=== PATIENT | male | born 1965 | race Hispanic/Latino ===

== ENCOUNTER 2016-10-11 08:26 | Emergency (ER) | payer OTHER ==
[~2016-10-11] VITALS: Ht 152.4 cm; Wt 60.0 kg
[2016-10-11] MEDS ORDERED: MOTRIN800 MG PO (08:33)
[2016-10-11] MEDS ORDERED: FLEXERIL PO (08:33)
[2016-10-11] MEDS ORDERED: TRAMADOL HYDROC50 MG PO (08:33)
[2016-10-11 10:07] VITALS: BP 139/77
== END 2016-10-11 10:08 | disposition home or self-care (01) | DRG 552 ==
LOC: ED 08:26
DX: S23.3XXA Sprain of ligaments of thoracic spine, initial encounter (principal); V44.6XXA Car passenger injured in collision with heavy transport vehicle or bus in traffic accident, initial encounter

== ENCOUNTER 2019-02-22 08:11 | Emergency (ER) | payer SELFPAY ==
[~2019-02-22] VITALS: Ht 152.4 cm; Wt 80.0 kg
[~2019-02-22 08:11] MED LIST: FLEXERIL PO; MOTRIN800 MG PO; TRAMADOL HYDROC50 MG PO
[2019-02-22 08:45] LABS: HEMATOCRIT 45.7 % (39.0-50.0); HEMOGLOBIN 16.2 g/dl (14.0-18.0); IMMATURE GRANULOCYTES 0.5 % (0.0-5.0); MEAN CELL VOLUME 88.1 fL CALC (80.0-100.0); MEAN CORPUSCULAR HGB 31.2 pG CALC (26.0-32.0); MEAN CORPUSCULAR HGB CONC 35.4 g/L CALC (32.0-36.0); NEUT# 8.42 thou/uL (1.82-7.42); RED BLOOD COUNT 5.19 mill/uL (4.70-6.10); RED CELL DISTRI WIDTH 12.3 % (11.5-15.5)
[2019-02-22 09:00] LABS: ANION GAP 19 (6-22 (CALC)); BUN 12 mg/dL (9-20); BUN/CREATININE RATIO 15 (12-20 (CALC)); CARBON DIOXIDE 22 mmol/l (22-30); CHLORIDE 96 mmol/l (95-108); CREATININE 0.8 mg/dL (0.7-1.3); GFR > 60 ML/MIN (>=60 (CALC)); GFR FOR AFR.AMER. > 60 ML/MIN (>=60 (CALC)); POTASSIUM 3.9 mmol/l (3.5-5.1); SODIUM 133 mmol/l (137-146)
[2019-02-22] MEDS ORDERED: COLCHICINE0.6 M2 PO (09:26)
[2019-02-22] MEDS ORDERED: MOTRIN400 MG PO (09:26)
[2019-02-22] MEDS ORDERED: CEPHALEXIN500 M1 PO (09:27)
[2019-02-22 09:33] VITALS: BP 129/77
== END 2019-02-22 09:50 | disposition home or self-care (01) | DRG 554 ==
LOC: ED 08:11
PROVIDERS: Family Medicine
DX: M10.09 Idiopathic gout, multiple sites (principal)

== ENCOUNTER 2021-08-18 08:56 | Emergency (ER) | payer SELFPAY ==
[~2021-08-18] VITALS: Ht 152.4 cm; Wt 90.0 kg
[~2021-08-18 08:56] MED LIST changes: +CEPHALEXIN500 M1 PO; +COLCHICINE0.6 M2 PO; +MOTRIN400 MG PO
[2021-08-18] MEDS ORDERED: MELOXICAM7.5 MG PO (09:19)
[2021-08-18] MEDS ORDERED: MEDDOSEPAK PO (09:22)
[2021-08-18] MEDS ORDERED: ULTRAM50 MG PO (09:22)
[2021-08-18 09:24] VITALS: BP 146/97
== END 2021-08-18 09:42 | disposition home or self-care (01) | DRG 554 ==
LOC: ED 08:56
DX: M15.9 Polyosteoarthritis, unspecified (principal)

== ENCOUNTER 2021-10-04 12:46 | Inpatient (IN) | payer SELFPAY ==
[2021-10-04] VITALS (12 sets, daily range): BP systolic 109–143; BP diastolic 71–89
[~2021-10-04] VITALS: Ht 162.6 cm; Wt 84.0 kg
[~2021-10-04 12:46] MED LIST changes: +MEDDOSEPAK PO; +MELOXICAM7.5 MG PO; +ULTRAM50 MG PO
[2021-10-04 14:24] LABS: IMMATURE GRANULOCYTES 0.8 % (0.0-5.0); MEAN CELL VOLUME 85.8 fL CALC (80.0-100.0); MEAN CORPUSCULAR HGB 27.7 pG CALC (26.0-32.0); MEAN CORPUSCULAR HGB CONC 32.2 g/dL CAL (32.0-36.0); NEUT# 17.57 thou/uL (1.82-7.42); RED BLOOD COUNT 4.3 mill/uL (4.70-6.10); RED CELL DISTRI WIDTH 16.6 % (11.5-15.5)
[2021-10-04 14:25] LABS: ALKALINE PHOSPHATASE 100 u/l (38-126); BILIRUBIN, TOTAL 0.5 mg/dL (0.0-1.4); BUN 25 mg/dL (9-20); BUN/CREATININE RATIO 32 (12-20 (CALC)); CARBON DIOXIDE 21 mmol/l (22-30); CREATININE 0.8 mg/dL (0.7-1.3); GFR FOR AFR.AMER. > 60 ML/MIN (>=60 (CALC)); GFR OTHER RACES > 60 ML/MIN (>=60 (CALC)); LIPASE 94 u/l (23-300); POTASSIUM 3.5 mmol/l (3.5-5.1); SGOT/AST 29 u/l (17-59); SODIUM 139 mmol/l (137-146); TOTAL PROTEIN 6.8 g/dL (6.3-8.2)
[2021-10-04 14:36] LABS: HEMATOCRIT 36.9 % (39.0-50.0); HEMOGLOBIN 11.9 g/dl (14.0-18.0)
[2021-10-04 14:39] LABS: ANION GAP 14 (6-22 (CALC)); CHLORIDE 108 mmol/l (95-108)
[2021-10-04 18:29] LABS: URINE BILIRUBIN - DIPSTICK NEGATIVE (NEGATIVE); URINE BLOOD DIPSTICK NEGATIVE (NEGATIVE); URINE COLOR YELLOW; URINE GLUCOSE - DIPSTICK NEGATIVE (NEGATIVE); URINE KETONE NEGATIVE (NEGATIVE); URINE LEUK ESTERASE NEGATIVE (NEGATIVE); URINE PH 6.5 (4.5-8.0); URINE PROTEIN - DIPSTICK NEGATIVE (NEG-TRACE)
[2021-10-04 18:33] LABS: URINE NITRITE - DIPSTICK NEGATIVE (Negative)
[2021-10-05] VITALS (13 sets, daily range): BP systolic 74–206; BP diastolic 50–111
[2021-10-05 05:55] LABS: HEMATOCRIT 32.3 % (39.0-50.0); HEMOGLOBIN 10.5 g/dl (14.0-18.0); IMMATURE GRANULOCYTES 0.3 % (0.0-5.0); MEAN CELL VOLUME 87.1 fL CALC (80.0-100.0); MEAN CORPUSCULAR HGB 28.3 pG CALC (26.0-32.0); MEAN CORPUSCULAR HGB CONC 32.5 g/dL CAL (32.0-36.0); NEUT# 16.58 thou/uL (1.82-7.42); RED BLOOD COUNT 3.71 mill/uL (4.70-6.10); RED CELL DISTRI WIDTH 17.5 % (11.5-15.5)
[2021-10-05 06:30] LABS: ALKALINE PHOSPHATASE 61 u/l (38-126); BUN 17 mg/dL (9-20); BUN/CREATININE RATIO 27 (12-20 (CALC)); CHLORIDE 108 mmol/l (95-108); CREATININE 0.6 mg/dL (0.7-1.3); GFR FOR AFR.AMER. > 60 ML/MIN (>=60 (CALC)); GFR OTHER RACES > 60 ML/MIN (>=60 (CALC)); MAGNESIUM 2.2 mg/dL (1.6-2.3); SGOT/AST 16 u/l (17-59); SODIUM 138 mmol/l (137-146)
[2021-10-05 06:48] LABS: ALBUMIN 2.7 g/dL (3.2-5.0); ANION GAP 7 (6-22 (CALC)); BILIRUBIN, TOTAL 0.8 mg/dL (0.0-1.4); CARBON DIOXIDE 27 mmol/l (22-30)
[2021-10-06] VITALS (66 sets, daily range): BP systolic 77–121; BP diastolic 50–84
[2021-10-06 05:24] LABS: HEMATOCRIT 33.7 % (39.0-50.0); HEMOGLOBIN 10.6 g/dl (14.0-18.0); IMMATURE GRANULOCYTES 0.6 % (0.0-5.0); MEAN CELL VOLUME 88.2 fL CALC (80.0-100.0); MEAN CORPUSCULAR HGB 27.7 pG CALC (26.0-32.0); MEAN CORPUSCULAR HGB CONC 31.5 g/dL CAL (32.0-36.0); NEUT# 22.91 thou/uL (1.82-7.42); RED BLOOD COUNT 3.82 mill/uL (4.70-6.10)
[2021-10-06 06:18] LABS: BUN 25 mg/dL (9-20); BUN/CREATININE RATIO 23 (12-20 (CALC)); CHLORIDE 111 mmol/l (95-108); CREATININE 1.1 mg/dL (0.7-1.3); GFR FOR AFR.AMER. > 60 ML/MIN (>=60 (CALC)); GFR OTHER RACES > 60 ML/MIN (>=60 (CALC)); MAGNESIUM 1.9 mg/dL (1.6-2.3); SODIUM 137 mmol/l (137-146)
[2021-10-06 06:22] LABS: ANION GAP 12 (6-22 (CALC)); CARBON DIOXIDE 18 mmol/l (22-30)
[2021-10-07] VITALS (37 sets, daily range): BP systolic 88–150; BP diastolic 57–99
[2021-10-07 06:20] LABS: IMMATURE GRANULOCYTES 0.5 % (0.0-5.0); MEAN CORPUSCULAR HGB 28.1 pG CALC (26.0-32.0); MEAN CORPUSCULAR HGB CONC 29.8 g/dL CAL (32.0-36.0); NEUT# 13.16 thou/uL (1.82-7.42); RED BLOOD COUNT 2.92 mill/uL (4.70-6.10); RED CELL DISTRI WIDTH 18.1 % (11.5-15.5)
[2021-10-07 06:59] LABS: HEMATOCRIT 27.5 % (39.0-50.0); HEMOGLOBIN 8.2 g/dl (14.0-18.0); MEAN CELL VOLUME 94.2 fL CALC (80.0-100.0)
[2021-10-07 07:15] LABS: ANION GAP 8 (6-22 (CALC)); BUN 17 mg/dL (9-20); BUN/CREATININE RATIO 21 (12-20 (CALC)); CARBON DIOXIDE 19 mmol/l (22-30); CHLORIDE 113 mmol/l (95-108); CREATININE 0.8 mg/dL (0.7-1.3); GFR FOR AFR.AMER. > 60 ML/MIN (>=60 (CALC)); GFR OTHER RACES > 60 ML/MIN (>=60 (CALC)); POTASSIUM 3.5 mmol/l (3.5-5.1); SODIUM 136 mmol/l (137-146)
[2021-10-07 07:18] LABS: MAGNESIUM 2.4 mg/dL (1.6-2.3)
[2021-10-08] VITALS (17 sets, daily range): BP systolic 120–166; BP diastolic 75–107
[2021-10-08 07:03] LABS: HEMATOCRIT 28.6 % (39.0-50.0); HEMOGLOBIN 9.5 g/dl (14.0-18.0); MEAN CORPUSCULAR HGB 27.7 pG CALC (26.0-32.0); MEAN CORPUSCULAR HGB CONC 33.2 g/dL CAL (32.0-36.0); RED BLOOD COUNT 3.43 mill/uL (4.70-6.10); RED CELL DISTRI WIDTH 17.3 % (11.5-15.5)
[2021-10-08 07:06] LABS: MEAN CELL VOLUME 83.4 fL CALC (80.0-100.0)
[2021-10-08 07:19] LABS: ALKALINE PHOSPHATASE 73 u/l (38-126); ANION GAP 13 (6-22 (CALC)); BUN 10 mg/dL (9-20); BUN/CREATININE RATIO 14 (12-20 (CALC)); CARBON DIOXIDE 20 mmol/l (22-30); CHLORIDE 109 mmol/l (95-108); CREATININE 0.7 mg/dL (0.7-1.3); GFR FOR AFR.AMER. > 60 ML/MIN (>=60 (CALC)); GFR OTHER RACES > 60 ML/MIN (>=60 (CALC)); MAGNESIUM 2.1 mg/dL (1.6-2.3); POTASSIUM 3.1 mmol/l (3.5-5.1); SGOT/AST 15 u/l (17-59); SODIUM 138 mmol/l (137-146); TOTAL PROTEIN 4.5 g/dL (6.3-8.2)
[2021-10-08 07:54] LABS: ALBUMIN 2.1 g/dL (3.2-5.0); BILIRUBIN, TOTAL 1.2 mg/dL (0.0-1.4)
[2021-10-09 00:11] VITALS: BP 158/94
[2021-10-09 04:00] VITALS: BP 158/94
[2021-10-09 06:26] VITALS: BP 162/95
[2021-10-09 06:59] LABS: HEMATOCRIT 28.4 % (39.0-50.0); HEMOGLOBIN 9.3 g/dl (14.0-18.0); MEAN CELL VOLUME 86.1 fL CALC (80.0-100.0); MEAN CORPUSCULAR HGB 28.2 pG CALC (26.0-32.0); MEAN CORPUSCULAR HGB CONC 32.7 g/dL CAL (32.0-36.0); RED BLOOD COUNT 3.3 mill/uL (4.70-6.10); RED CELL DISTRI WIDTH 17.4 % (11.5-15.5)
[2021-10-09 07:20] LABS: ALBUMIN 2.2 g/dL (3.2-5.0); ALKALINE PHOSPHATASE 73 u/l (38-126); ANION GAP 15 (6-22 (CALC)); BILIRUBIN, TOTAL 1.1 mg/dL (0.0-1.4); BUN 9 mg/dL (9-20); BUN/CREATININE RATIO 13 (12-20 (CALC)); CARBON DIOXIDE 17 mmol/l (22-30); CHLORIDE 110 mmol/l (95-108); CREATININE 0.7 mg/dL (0.7-1.3); GFR FOR AFR.AMER. > 60 ML/MIN (>=60 (CALC)); GFR OTHER RACES > 60 ML/MIN (>=60 (CALC)); MAGNESIUM 2.2 mg/dL (1.6-2.3); POTASSIUM 3.3 mmol/l (3.5-5.1); SGOT/AST 15 u/l (17-59); SODIUM 140 mmol/l (137-146); TOTAL PROTEIN 4.7 g/dL (6.3-8.2)
[2021-10-09 11:25] VITALS: BP 153/91
[2021-10-09 20:00] VITALS: BP 160/95
[2021-10-10 00:32] VITALS: BP 156/90
[2021-10-10 04:06] VITALS: BP 140/85
[2021-10-10 07:09] VITALS: BP 156/93
[2021-10-10 09:21] LABS: HEMATOCRIT 30.9 % (39.0-50.0); HEMOGLOBIN 9.9 g/dl (14.0-18.0); IMMATURE GRANULOCYTES 0.8 % (0.0-5.0); MEAN CELL VOLUME 84.4 fL CALC (80.0-100.0); NEUT# 9.41 thou/uL (1.82-7.42); RED BLOOD COUNT 3.66 mill/uL (4.70-6.10); RED CELL DISTRI WIDTH 17.2 % (11.5-15.5)
[2021-10-10 09:38] LABS: ALKALINE PHOSPHATASE 95 u/l (38-126); BILIRUBIN, TOTAL 0.9 mg/dL (0.0-1.4); BUN 8 mg/dL (9-20); BUN/CREATININE RATIO 12 (12-20 (CALC)); CHLORIDE 107 mmol/l (95-108); CREATININE 0.6 mg/dL (0.7-1.3); GFR FOR AFR.AMER. > 60 ML/MIN (>=60 (CALC)); GFR OTHER RACES > 60 ML/MIN (>=60 (CALC)); MAGNESIUM 2.2 mg/dL (1.6-2.3); POTASSIUM 3.3 mmol/l (3.5-5.1); SGOT/AST 19 u/l (17-59); SODIUM 139 mmol/l (137-146)
[2021-10-10 09:39] LABS: ALBUMIN 2.8 g/dL (3.2-5.0); ANION GAP 12 (6-22 (CALC)); CARBON DIOXIDE 23 mmol/l (22-30); TOTAL PROTEIN 6.1 g/dL (6.3-8.2)
[2021-10-10 10:26] VITALS: BP 155/89
[2021-10-10 14:27] VITALS: BP 137/91
[2021-10-10 19:04] VITALS: BP 155/95
[2021-10-11] VITALS (9 sets, daily range): BP systolic 122–138; BP diastolic 79–90
[2021-10-11 05:13] LABS: HEMATOCRIT 26.3 % (39.0-50.0); HEMOGLOBIN 8.8 g/dl (14.0-18.0); IMMATURE GRANULOCYTES 1.2 % (0.0-5.0); MEAN CELL VOLUME 82.4 fL CALC (80.0-100.0); MEAN CORPUSCULAR HGB 27.6 pG CALC (26.0-32.0); MEAN CORPUSCULAR HGB CONC 33.5 g/dL CAL (32.0-36.0); NEUT# 8.69 thou/uL (1.82-7.42); RED BLOOD COUNT 3.19 mill/uL (4.70-6.10); RED CELL DISTRI WIDTH 17.2 % (11.5-15.5)
[2021-10-11 05:38] LABS: ALKALINE PHOSPHATASE 93 u/l (38-126); ANION GAP 10 (6-22 (CALC)); BUN 5 mg/dL (9-20); BUN/CREATININE RATIO 9 (12-20 (CALC)); CARBON DIOXIDE 24 mmol/l (22-30); CHLORIDE 104 mmol/l (95-108); CREATININE 0.5 mg/dL (0.7-1.3); GFR FOR AFR.AMER. > 60 ML/MIN (>=60 (CALC)); GFR OTHER RACES > 60 ML/MIN (>=60 (CALC)); MAGNESIUM 2.1 mg/dL (1.6-2.3); SGOT/AST 16 u/l (17-59); SODIUM 135 mmol/l (137-146)
[2021-10-11 05:39] LABS: ALBUMIN 2.1 g/dL (3.2-5.0); BILIRUBIN, TOTAL 0.5 mg/dL (0.0-1.4); TOTAL PROTEIN 4.7 g/dL (6.3-8.2)
[2021-10-12] VITALS (12 sets, daily range): BP systolic 132–158; BP diastolic 68–88
[2021-10-12 05:17] LABS: HEMATOCRIT 26.5 % (39.0-50.0); HEMOGLOBIN 8.7 g/dl (14.0-18.0); MEAN CELL VOLUME 84.1 fL CALC (80.0-100.0); MEAN CORPUSCULAR HGB 27.6 pG CALC (26.0-32.0); MEAN CORPUSCULAR HGB CONC 32.8 g/dL CAL (32.0-36.0); RED BLOOD COUNT 3.15 mill/uL (4.70-6.10); RED CELL DISTRI WIDTH 17.5 % (11.5-15.5)
[2021-10-12 05:31] LABS: ALBUMIN 2.2 g/dL (3.2-5.0); ALKALINE PHOSPHATASE 147 u/l (38-126); ANION GAP 10 (6-22 (CALC)); BILIRUBIN, TOTAL 0.4 mg/dL (0.0-1.4); BUN 4 mg/dL (9-20); BUN/CREATININE RATIO 7 (12-20 (CALC)); CARBON DIOXIDE 26 mmol/l (22-30); CHLORIDE 103 mmol/l (95-108); CREATININE 0.6 mg/dL (0.7-1.3); GFR FOR AFR.AMER. > 60 ML/MIN (>=60 (CALC)); GFR OTHER RACES > 60 ML/MIN (>=60 (CALC)); POTASSIUM 3.3 mmol/l (3.5-5.1); SGOT/AST 16 u/l (17-59); SODIUM 136 mmol/l (137-146); TOTAL PROTEIN 4.7 g/dL (6.3-8.2)
[2021-10-13] VITALS (7 sets, daily range): BP systolic 125–158; BP diastolic 74–91
[2021-10-14] VITALS (7 sets, daily range): BP systolic 109–156; BP diastolic 66–88
[2021-10-14 05:27] LABS: HEMATOCRIT 25.4 % (39.0-50.0); HEMOGLOBIN 8.4 g/dl (14.0-18.0); IMMATURE GRANULOCYTES 0.7 % (0.0-5.0); MEAN CELL VOLUME 81.9 fL CALC (80.0-100.0); MEAN CORPUSCULAR HGB 27.1 pG CALC (26.0-32.0); MEAN CORPUSCULAR HGB CONC 33.1 g/dL CAL (32.0-36.0); NEUT# 5.92 thou/uL (1.82-7.42); RED BLOOD COUNT 3.1 mill/uL (4.70-6.10); RED CELL DISTRI WIDTH 17.1 % (11.5-15.5)
[2021-10-14 05:46] LABS: ALBUMIN 2.3 g/dL (3.2-5.0); ALKALINE PHOSPHATASE 111 u/l (38-126); ANION GAP 10 (6-22 (CALC)); BILIRUBIN, TOTAL 0.4 mg/dL (0.0-1.4); BUN < 2 mg/dL (9-20); CARBON DIOXIDE 29 mmol/l (22-30); CHLORIDE 97 mmol/l (95-108); CREATININE 0.6 mg/dL (0.7-1.3); GFR FOR AFR.AMER. > 60 ML/MIN (>=60 (CALC)); GFR OTHER RACES > 60 ML/MIN (>=60 (CALC)); POTASSIUM 3.3 mmol/l (3.5-5.1); SGOT/AST 16 u/l (17-59); SODIUM 133 mmol/l (137-146); TOTAL PROTEIN 5.2 g/dL (6.3-8.2)
[2021-10-14 09:25] LABS: INTERNATIONAL NORMALIZED RATIO 1.2 RATIO (0.7-1.3); PROTHROMBIN TIME 11.5 SECONDS (9.0-12.5)
[2021-10-14 20:14] LABS: HEMATOCRIT 26.1 % (39.0-50.0); HEMOGLOBIN 8.5 g/dl (14.0-18.0)
[2021-10-15 00:17] VITALS: BP 118/76
[2021-10-15 03:14] VITALS: BP 140/83
[2021-10-15 04:55] LABS: HEMATOCRIT 26.5 % (39.0-50.0); HEMOGLOBIN 8.9 g/dl (14.0-18.0); MEAN CELL VOLUME 80.1 fL CALC (80.0-100.0); MEAN CORPUSCULAR HGB 26.9 pG CALC (26.0-32.0); MEAN CORPUSCULAR HGB CONC 33.6 g/dL CAL (32.0-36.0); RED BLOOD COUNT 3.31 mill/uL (4.70-6.10); RED CELL DISTRI WIDTH 17.1 % (11.5-15.5)
[2021-10-15 05:19] LABS: ALKALINE PHOSPHATASE 116 u/l (38-126); ANION GAP 8 (6-22 (CALC)); BILIRUBIN, TOTAL 0.3 mg/dL (0.0-1.4); BUN 3 mg/dL (9-20); BUN/CREATININE RATIO 6 (12-20 (CALC)); CARBON DIOXIDE 29 mmol/l (22-30); CHLORIDE 101 mmol/l (95-108); CREATININE 0.6 mg/dL (0.7-1.3); GFR FOR AFR.AMER. > 60 ML/MIN (>=60 (CALC)); GFR OTHER RACES > 60 ML/MIN (>=60 (CALC)); POTASSIUM 3.7 mmol/l (3.5-5.1); SGOT/AST 22 u/l (17-59); SODIUM 134 mmol/l (137-146); TOTAL PROTEIN 5.9 g/dL (6.3-8.2)
[2021-10-15 05:21] LABS: ALBUMIN 2.8 g/dL (3.2-5.0)
[2021-10-15 06:19] VITALS: BP 140/85
[2021-10-15 11:04] VITALS: BP 144/81
[2021-10-15 16:19] VITALS: BP 139/80
[2021-10-15 19:19] VITALS: BP 131/84
[2021-10-16 00:26] VITALS: BP 143/82
[2021-10-16 04:44] VITALS: BP 139/85
[2021-10-16 05:35] LABS: HEMATOCRIT 24.5 % (39.0-50.0); MEAN CELL VOLUME 82.2 fL CALC (80.0-100.0); MEAN CORPUSCULAR HGB 26.8 pG CALC (26.0-32.0); MEAN CORPUSCULAR HGB CONC 32.7 g/dL CAL (32.0-36.0); RED BLOOD COUNT 2.98 mill/uL (4.70-6.10)
[2021-10-16 05:37] LABS: ANION GAP 13 (6-22 (CALC)); BUN 3 mg/dL (9-20); BUN/CREATININE RATIO 5 (12-20 (CALC)); CARBON DIOXIDE 26 mmol/l (22-30); CHLORIDE 99 mmol/l (95-108); CREATININE 0.5 mg/dL (0.7-1.3); GFR FOR AFR.AMER. > 60 ML/MIN (>=60 (CALC)); GFR OTHER RACES > 60 ML/MIN (>=60 (CALC)); POTASSIUM 3.4 mmol/l (3.5-5.1); SODIUM 134 mmol/l (137-146)
[2021-10-16 06:21] VITALS: BP 127/81
[2021-10-16 10:45] VITALS: BP 120/82
[2021-10-16 15:30] VITALS: BP 134/82
[2021-10-16 19:29] VITALS: BP 139/85
[2021-10-17] VITALS (7 sets, daily range): BP systolic 112–136; BP diastolic 63–79
[2021-10-17 06:24] LABS: HEMOGLOBIN 8.7 g/dl (14.0-18.0); MEAN CELL VOLUME 83.1 fL CALC (80.0-100.0); MEAN CORPUSCULAR HGB 26.8 pG CALC (26.0-32.0); MEAN CORPUSCULAR HGB CONC 32.2 g/dL CAL (32.0-36.0); RED BLOOD COUNT 3.25 mill/uL (4.70-6.10); RED CELL DISTRI WIDTH 17.5 % (11.5-15.5)
[2021-10-17 06:42] LABS: ALBUMIN 2.9 g/dL (3.2-5.0); ALKALINE PHOSPHATASE 87 u/l (38-126); ANION GAP 17 (6-22 (CALC)); BILIRUBIN, TOTAL 0.4 mg/dL (0.0-1.4); BUN 2 mg/dL (9-20); BUN/CREATININE RATIO 4 (12-20 (CALC)); CARBON DIOXIDE 22 mmol/l (22-30); CHLORIDE 99 mmol/l (95-108); CREATININE 0.5 mg/dL (0.7-1.3); GFR FOR AFR.AMER. > 60 ML/MIN (>=60 (CALC)); GFR OTHER RACES > 60 ML/MIN (>=60 (CALC)); POTASSIUM 3.9 mmol/l (3.5-5.1); SGOT/AST 19 u/l (17-59); SODIUM 134 mmol/l (137-146); TOTAL PROTEIN 6.1 g/dL (6.3-8.2)
== END 2021-10-17 22:57 | disposition short-term general hospital (02) | DRG 326 ==
LOC: ED 12:46 → ED-I 18:01 → ED 18:25 → MS2 18:26 → ICU 10-05 18:30 → MS2 10-08 10:42
PROVIDERS: Internal Medicine; Nurse Practitioner; ADMIT Internal Medicine; ATTEND Internal Medicine
PROC: 0DU607Z Supplement Stomach with Autologous Tissue Substitute, Open Approach (ICD-10-PCS; principal; 2021-10-05)
PROC: 0BH17EZ Insertion of Endotracheal Airway into Trachea, Via Natural or Artificial Opening (ICD-10-PCS; 2021-10-05)
PROC: 5A1945Z Respiratory Ventilation, 24-96 Consecutive Hours (ICD-10-PCS; 2021-10-05)
PROC: 3E033XZ Introduction of Vasopressor into Peripheral Vein, Percutaneous Approach (ICD-10-PCS; 2021-10-05)
PROC: 2Y41X5Z Packing of Nasal Region using Packing Material (ICD-10-PCS; 2021-10-14)
DX: K25.5 Chronic or unspecified gastric ulcer with perforation (principal); A41.9 Sepsis, unspecified organism; R65.21 Severe sepsis with septic shock; E87.2 Acidosis; D62 Acute posthemorrhagic anemia; M10.9 Gout, unspecified; E87.6 Hypokalemia; R04.0 Epistaxis; B96.81 Helicobacter pylori [H. pylori] as the cause of diseases classified elsewhere; M25.461 Effusion, right knee; T36.8X5A Adverse effect of other systemic antibiotics, initial encounter; M25.562 Pain in left knee; M25.561 Pain in right knee; Z20.822 Contact with and (suspected) exposure to COVID-19
CPT/HCPCS: J1650; J1756; Q9967; S0164

== ENCOUNTER 2022-09-08 10:35 | Emergency (ER) | payer SELFPAY ==
[~2022-09-08] VITALS: Ht 154.9 cm; Wt 54.4 kg
[~2022-09-08 10:35] MED LIST changes: +AMOXICILLIN500 M2; +LEVAQUIN250 MG PO; +MELOXICAM15 MG PO; +PROTONIX40 M2 PO; +RESTORIL15 M1 PO
[2022-09-08 10:43] VITALS: BP 142/90
[2022-09-08 11:00] VITALS: BP 119/80
[2022-09-08 11:23] LABS: BASO% 0.6 % (0-3); IMMATURE GRANULOCYTES 0.2 % (0.0-5.0); LYMPH% 13.7 % (15-41); MEAN CELL VOLUME 83.3 fL CALC (80.0-100.0); MEAN CORPUSCULAR HGB 27.5 pG CALC (26.0-32.0); MONO% 7.9 % (2-13); NEUT# 4.76 thou/uL (1.82-7.42); NEUT% 76.6 % (42-76); RED BLOOD COUNT 4.26 mill/uL (4.70-6.10); RED CELL DISTRI WIDTH 13.6 % (11.5-15.5)
[2022-09-08 11:24] LABS: HEMATOCRIT 35.5 % (39.0-50.0); HEMOGLOBIN 11.7 g/dl (14.0-18.0)
[2022-09-08 11:30] VITALS: BP 128/88
[2022-09-08 12:00] VITALS: BP 115/78
[2022-09-08] MEDS ORDERED: AMOX/K CLAV875 M1 PO (12:47)
[2022-09-08 13:09] VITALS: BP 115/78
== END 2022-09-08 13:15 | disposition home or self-care (01) | DRG 556 ==
LOC: ED 10:35
PROVIDERS: Family Medicine
PROC: 3E0U33Z Introduction of Anti-inflammatory into Joints, Percutaneous Approach (ICD-10-PCS; principal; 2022-09-08)
PROC: 3E0U3BZ Introduction of Anesthetic Agent into Joints, Percutaneous Approach (ICD-10-PCS; 2022-09-08)
DX: M25.562 Pain in left knee (principal); M25.561 Pain in right knee; I10 Essential (primary) hypertension; E11.9 Type 2 diabetes mellitus without complications; M10.9 Gout, unspecified